=== PATIENT | male | born 1965 | race American Indian/Alaskan Native ===

== ENCOUNTER 2020-02-20 07:31 | Emergency (ER) | payer OTHER ==
[2020-02-20 07:35] VITALS: BP 145/81
[2020-02-20] MEDS ORDERED: KETOROLAC 60 MG/2 ML INJ IM ONE (09:14)
[2020-02-20] MEDS ORDERED: dexAMETHasone 20 MG/5 ML VIAL IM ONE (09:14)
--- NOTE | 2020-02-20 09:19 | Emergency Department Report ---
ED General Adult HPI - General Chief complaint: Extremity Problem,Nontraumatic Stated complaint: SWELLING LEFT ANKLE AND KNEE Time Seen by Provider: 02/20/20 08:23 Source: patient Mode of arrival: Ambulatory Limitations: No Limitations - History of Present Illness Initial comments: 54-year-old -[place] male patient presents with complaints of left lower leg pain and swelling x5 days. Patient states history of gout in reports he is currently taking allopurinol. He reports swelling of the left ankle which is typical of his gout, however this pain feels different. He denies any fever/chills/sweats, injury to his leg, recent long travel, shortness of breath, hemoptysis, or history of DVT/PE. He rates his current pain as a 4/10 in severity - Related Data Previous Rx's Medication Instructions Recorded Last Taken Type Naproxen [EC-Naprosyn] 500 mg PO BID PRN #14 tablet. 02/20/20 Unknown Rx Allergies Allergy/AdvReac Type Severity Reaction Status Date / Time No Known Allergies Allergy Unverified 02/20/20 07:34 ED Review of Systems ROS: Stated complaint: SWELLING LEFT ANKLE AND KNEE Other details as noted in HPI Constitutional: denies: chills, fever, malaise Respiratory: denies: cough, shortness of breath Gastrointestinal: denies: nausea, vomiting Musculoskeletal: joint swelling, arthralgia Skin: denies: rash, lesions, change in color Neurological: denies: headache, numbness, paresthesias Hematological/Lymphatic: denies: easy bleeding ED Past Medical Hx - Past Medical History Previous Medical History?: Yes Additional medical history: Gout - Surgical History Past Surgical History?: No - Social History Smoking Status: Never Smoker Substance Use Type: None - Medications Home Medications: Home Medications Medication Instructions Recorded Confirmed Last Taken Type Naproxen [EC-Naprosyn] 500 mg PO BID PRN #14 tablet. 02/20/20 Unknown Rx ED Physical Exam - General Limitations: No Limitations General appearance: alert, in no apparent distress, obese - Head Head exam: Present: atraumatic, normocephalic - Eye Eye exam: Absent: scleral icterus - Respiratory Respiratory exam: Present: normal lung sounds bilaterally. Absent: respiratory distress - Cardiovascular Cardiovascular Exam: Present: regular rate, normal rhythm - Extremities Exam Extremities exam: Present: other (Swelling noted to the left lower leg and ankle with tenderness to palpation of the lateral malleolus; normal pedal pulses noted; no erythema or skin tightening noted) - Back Exam Back exam: Present: full ROM - Neurological Exam Neurological exam: Present: alert, oriented X3 - Psychiatric Psychiatric exam: Present: normal affect, normal mood - Skin Skin exam: Present: warm, dry, intact, normal color. Absent: rash ED Course Vital Signs 02/20/20 02/20/20 07:34 09:29 Temperature 98.6 F Pulse Rate 78 Respiratory 18 18 Rate Blood Pressure 145/81 O2 Sat by Pulse 100 Oximetry ED Medical Decision Making - Lab Data Result diagrams: 02/20/20 10:24 02/20/20 10:24 - Radiology Data Radiology results: report reviewed Procedure(s): XR ankle 3+V LT Accession Number(s): [id number] cc: DEBORAH GIBSON Fluoro Time In Minutes: CLINICAL DATA: pain and swelling, hx of gout TECHNICAL DATA: Four views of the ankle were obtained in the AP, lateral, and obliques. FINDINGS: Marked edema is present overlying the lateral malleolus. There is no acute fracture, dislocation, or subluxation. The tibial plafond, ankle mortise, and talar dome are intact. IMPRESSION: Marked soft tissue swelling as noted. MR may be of benefit for further evaluation to exclude inflammatory process DUPLEX DOPPLER LOWER EXTREMITY VEINS, LEFT INDICATION / CLINICAL INFORMATION: pain and swelling. TECHNIQUE: Duplex doppler imaging was performed through the veins of the left lower extremity using venous compression and other maneuvers. COMPARISON: None available. FINDINGS: LEFT COMMON FEMORAL VEIN: Negative. LEFT FEMORAL VEIN: Negative. LEFT POPLITEAL VEIN: Negative. LEFT CALF VEINS: Negative. ADDITIONAL FINDINGS: Fluid structure lateral aspect of the knee questionable effusion IMPRESSION: 1. No sonographic evidence for DVT in the left lower extremity. - Medical Decision Making 54-year-old -[place] male patient presents with complaints of left lower leg pain and swelling x5 days. Patient states history of gout in reports he is currently taking allopurinol. He reports swelling of the left ankle which is typical of his gout, however this pain feels different. He denies any fever/chills/sweats, injury to his leg, recent long travel, shortness of breath, hemoptysis, or history of DVT/PE. He rates his current pain as a 4/10 in severity Venous ultrasound is negative for DVT. X-ray shows marked edema without obvious osteomyelitis or acute bony abnormality. CBC, BMP are normal. Will treat for gout flare. Patient given Toradol and Decadron here in ED and states symptoms have significantly improved. Recommend follow-up with PCP in 3 days. Prescription for naproxen given. Discussed signs and symptoms that should prompt immediate return to the ED in detail with patient who verbalizes under standing. Critical care attestation.: If time is entered above; I have spent that time in minutes in the direct care of this critically ill patient, excluding procedure time. ED Disposition Clinical Impression: Gout flare Qualifiers: Gout etiology: unspecified cause Laterality: left Disposition: DC-01 TO HOME OR SELFCARE Is pt being admited?: No Condition: Stable Instructions: Low-Purine Eating Plan Prescriptions: Naproxen [EC-Naprosyn] 500 mg PO BID PRN #14 tablet.dr RODARTE Reason: pain Referrals: KIRSTIN HAGEN [Primary Care Provider] - 3-5 Days
--- NOTE | 2020-02-20 10:13 | XRay Report ---
CLINICAL DATA: pain and swelling, hx of gout TECHNICAL DATA: Four views of the ankle were obtained in the AP, lateral, and obliques. FINDINGS: Marked edema is present overlying the lateral malleolus. There is no acute fracture, dislocation, or subluxation. The tibial plafond, ankle mortise, and talar dome are intact. IMPRESSION: Marked soft tissue swelling as noted. MR may be of benefit for further evaluation to exclude inflamma tory process Signer Name: Ricardo Brewer MD Signed: 02/20/2020 10:09 AM Workstation Name: [id number]
--- NOTE | 2020-02-20 10:29 | Vascular Lab Report ---
DUPLEX DOPPLER LOWER EXTREMITY VEINS, LEFT INDICATION / CLINICAL INFORMATION: pain and swelling. TECHNIQUE: Duplex doppler imaging was performed through the veins of the left lower extremity using venous compr ession and other maneuvers. COMPARISON: None available. FINDINGS: LEFT COMMON FEMORAL VEIN: Negative. LEFT FEMORAL VEIN: Negative. LEFT POPLITEAL VEIN: Negative. LEFT CALF VEINS: Negative. ADDITIONAL FINDINGS: Fluid structure lateral aspect of the knee questionable effusion IMPRESSION: 1. No sonographic evidence for DVT in the left lower extremity. Signer Name: Ricardo Brewer MD Signed: 02/20/2020 10:24 AM Workstation Name: [id number]
[2020-02-20 10:34] LABS: Basophils % (Auto) 0.5 % (0.0-1.8); Eosinophils # (Auto) 0.1 K/mm3 (0.0-0.4); Eosinophils % (Auto) 1.9 % (0.0-4.3); Hematocrit 33.2 % (35.5-45.6); Hemoglobin 10.4 gm/dl (11.8-15.2); Lymphocytes # (Auto) 1.7 K/mm3 (1.2-5.4); Lymphocytes % (Auto) 29.3 % (13.4-35.0); Mean Corpuscular HGB Conc 31 % (32-34); Monocytes # (Auto) 0.7 K/mm3 (0.0-0.8); Monocytes % (Auto) 11.1 % (0.0-7.3); Platelet Count 327 K/mm3 (140-440); Red Blood Count 4.98 M/mm3 (3.65-5.03); Red Cell Distribution Width 18.1 % (13.2-15.2)
[2020-02-20 10:49] LABS: Mean Corpuscular Volume 67 fl (84-94)
[2020-02-20 11:07] LABS: BUN/Creatinine Ratio 13; Blood Urea Nitrogen 14 mg/dL (9-20); Calcium 9.4 mg/dL (8.4-10.2); Hemolysis Index 0; Uric Acid 6.7 mg/dL (3.5-7.6)
== END 2020-02-20 12:04 | disposition home or self-care (01) ==
LOC: ED 07:31
DX: M10.9 Gout, unspecified (principal); Z79.899 Other long term (current) drug therapy
CPT/HCPCS: 36415; 73610; 80048; 84550; 85025; 93971; 96372; 99284; J1100; J1885